=== PATIENT | male | born 1985 | race African-American/Black ===

== ENCOUNTER 2025-04-05 08:58 | Outpatient (CLI) | payer OTHER | END 2025-04-05 08:59 | disposition home or self-care (01) | LOC: MADRAD 08:58 | PROVIDERS: ATTEND Chiropractor | DX: M17.0 Bilateral primary osteoarthritis of knee (principal); M47.816 Spondylosis without myelopathy or radiculopathy, lumbar region | CPT/HCPCS: 72100 ==